=== PATIENT | male | born 1975 ===

== ENCOUNTER → 2018-09-20 22:04 | Outpatient (REF) | payer OTHER, SELFPAY ==
[2018-09-20 22:39] LABS: Add Manual Diff / Slide Review NO; Basophils Percent Auto 0.7 % (0-2); Eosinophils Percent Auto 3.8 % (2-4); Hemoglobin 16.5 g/dL (13.5-17.5); Lymphocytes Percent Auto 26.9 % (25-40); Mean Corpuscular Hemoglobin 30.9 PG (26-34); Mean Corpuscular Volume 88.4 fL (80-100); Monocytes Percent Auto 7.2 % (3-14); Neutrophils Absolute Auto 4400 /uL (3000-5900); Neutrophils Percent Auto 61.4 % (50-75); Platelet Count 306 X10^3/uL (150-400); Red Blood Cell Count 5.32 X10^6/uL (4.5-5.9); Red Cell Distribution Width 12.2 % (11.6-14.8); White Blood Cell Count 7.2 X10^3/uL (4.5-11.0)
[2018-09-22 15:27] LABS: Estradiol 59 pg/mL (< 40)
[2018-09-22 19:05] LABS: Sex Hormone Binding Globulin 16 nmol/L (10-50)
[2018-09-25 09:59] LABS: Testosterone Free 223.5 pg/mL (35.0-155.0); Testosterone Total 825 ng/dL (250-1100)
[2018-09-25 14:45] LABS: PSA Total 1.35 ng/mL (< 4.01)
== END ==
LOC: LAB 22:04
PROVIDERS: Visit Provider Naturopath
DX: E29.1 Testicular hypofunction (principal)
CPT/HCPCS: 82670; 84153; 84154; 84270; 84402; 84403; 85025

== ENCOUNTER → 2018-09-21 14:13 | Outpatient (REF) | payer OTHER, SELFPAY | LOC: LAB 14:13 | PROVIDERS: Visit Provider Naturopath | DX: E29.1 Testicular hypofunction (principal) ==

== ENCOUNTER → 2019-03-06 21:20 | Outpatient (ROUT) | payer OTHER, SELFPAY ==
[2019-03-07 04:10] LABS: Add Manual Diff / Slide Review NO; Basophils Absolute Auto 100 /uL (0-100); Eosinophils Absolute Auto 200 /uL (0-450); Eosinophils Percent Auto 2.5 % (2-4); Hematocrit 49.4 % (41-53); Hemoglobin 16.7 g/dL (13.5-17.5); Lymphocytes Absolute Auto 2400 /uL (1100-4500); Lymphocytes Percent Auto 26.3 % (25-40); Mean Corpuscular HGB Conc 33.8 % (30-36); Mean Corpuscular Hemoglobin 30.4 PG (26-34); Mean Corpuscular Volume 89.8 fL (80-100); Monocytes Absolute Auto 700 /uL (0-900); Neutrophils Absolute Auto 5700 /uL (1500-7000); Neutrophils Percent Auto 62.2 % (50-75); Platelet Count 309 X10^3/uL (150-400); Red Cell Distribution Width 12.2 % (11.6-14.8); White Blood Cell Count 9.2 X10^3/uL (4.5-11.0)
[2019-03-07 05:00] LABS: TSH w/ Reflex to FT4 2.57 uIU/mL (0.47-4.68)
[2019-03-07 05:02] LABS: Estradiol, Total 53.6 pg/mL
[2019-03-07 05:37] LABS: Alanine Aminotransferase 44 IU/L (21-72); Albumin 4.8 g/dL (3.5-5.0); Albumin Globulin Ratio 1.7 (1.0-2.8); Alkaline Phosphatase 62 U/L (38-126); Aspartate Aminotransferase 35 IU/L (17-59); BUN Creatinine Ratio 12.7 (6-22); Bilirubin Total 3.7 mg/dL (0.2-1.3); Blood Urea Nitrogen 14 mg/dL (9-20); Calcium 10.1 mg/dL (8.4-10.2); Carbon Dioxide 21 mmol/L (22-32); Chloride 106 mmol/L (98-107); Estimated Glomerular Filt Rate > 60.0 mL/min (>60); Globulin 2.8 g/dL (1.7-4.1); Glucose 87 mg/dL (70-100); HEMOLYSIS 43 (0-50); Potassium 4.3 mmol/L (3.4-5.1); Sodium 143 mmol/L (137-145); Total Protein 7.6 g/dL (6.3-8.2)
[2019-03-09 15:42] LABS: PSA Total 1.31 ng/mL (< 4.01)
[2019-03-11 09:33] LABS: Testosterone,Free 36.6
[2019-03-11 09:34] LABS: Sex Hormone Binding Globulin 22.7
[2019-03-14 09:56] LABS: Testosterone, Total 933.1
== END ==
PROVIDERS: Visit Provider Naturopath
DX: E16.2 Hypoglycemia, unspecified (principal); E03.9 Hypothyroidism, unspecified; E29.1 Testicular hypofunction; N40.1 Benign prostatic hyperplasia with lower urinary tract symptoms
CPT/HCPCS: 36415; 80053; 82670; 84153; 84154; 84270; 84402; 84403; 84443; 85025